=== PATIENT | female | born 1980 | race Caucasian/White ===

== ENCOUNTER 2023-07-25 05:39 | Day surgery (SDC) | payer MEDICAID, SELFPAY ==
[2023-07-25] VITALS (11 sets, daily range): BP systolic 91–126; BP diastolic 54–71; PULSE 70–87; RESP 14–18; TEMP 36.4–36.8; O2SAT 95–100; BMI 32.2
[2023-07-25 06:13] LABS: Hematocrit 39.6 % (37-47); Mean Corp Hgb Conc 32.8 g/dL (32-36); Mean Corpuscular Hgb 27.8 pg (27.0-32.0); Mean Corpuscular Volume 84.8 fL (81-99); Mean Platelet Vol. 9.1 fl (6.2-12.0); Platelet Count 327 K/mm3 (150-450); RBC Distribution Width CV 13.2 % (11.6-14.6); RBC Distribution Width SD 40.5 fl (35.1-43.9); Red Blood Count 4.67 M/mm3 (4.2-5.4)
[2023-07-25] MEDS: Lactated Ringers 1,000 ML 15 ML IV (06:18)
[2023-07-25 06:30] LABS: Anion Gap 5 (5-15); BUN 10 mg/dL (7-18); BUN/Creat Ratio 21.2 RATIO (10-20); Calcium,Total 8.5 mg/dL (8.5-10.1); Chloride 112 mmol/L (98-107); Creatinine, Serum 0.47 mg/dL (0.55-1.02); EST Glomerular Filtration Rate 152 mL/min (>60); Est Glom Filt Rate - Afr Amer 184 mL/min (>60); Estimated Creatinine Clearance 120.81 ml/min; Glucose 94 mg/dL (74-106); Potassium 4.1 mmol/L (3.5-5.1); Sodium Level 142 mmol/L (136-145)
--- NOTE | 2023-07-25 07:26 | PCM.HP.BLA ---
History and Physical Date of Admission: 07/25/23 Pt here for panniculectomy following massive weight loss with gastric bypass. Previous abdominal surgeries include hysterectomy, GB, laproscopic gastric bypass and hernial surgery. She is not a smoker, nor does she vape or use marijuana products. Neuro: Alert, cooperative, healthy appearing Pulm: lungs clear bilat. CV: RRR, no murmurs Abd: soft, no hernias; abdominal panniculus She has had a complete evaluation and clearance by her pcp. Assessment & Plan Assessment/Plan (1) Localized adiposity: (2) Panniculitis affecting back: PLAN: Plan for panniculectomy
--- NOTE | 2023-07-25 07:30 | PANN_PTH ---
PATIENT: JENNIFER MONROE LOC[place] [facility] [place][id number] AGE/SX: 43/F ROOM: RE07/25/[address]: Dr. Helen Gamboa MD : [id number] BED: DIS: 07/25/2023 SPEC #: [id number] RECD: 07/25/23 11:03 STATUS: HERBERTH BARON #: [id number] SAMANTHA: 07/25/23 07:[address]: Helen Gamboa DEPT: SURGICAL PATHOLOGY RECD BY: Alicia Rosales Tissues: Abdomen, NOS Procedures: Surgery Specimen Level IV HEADER OPERATION: Abdominal panniculectomy PRE-OP DIAGNOSIS: Localized adiposity, panniculitis affecting back TISSUE SUBMITTED: Abdominal pannus MICROSCOPIC DIAGNOSIS Abdominal pannus, panniculectomy: Pieces of skin with underlying tissue with minimal dermal chronic inflammation. ALTHEA:cain 07/29/2023 MICROSCOPIC DESCRIPTION Slides are reviewed. GROSS DESCRIPTION Received in fixative is one container labeled with the patient's name and designated abdominal pannus. The specimen consists of a piece of skin with underlying tissue measuring 20.0 x 17.0 x 4.0 cm. Two smaller pieces of skin with underlying tissue are also noted measuring 18.0 x 5.0 x 2.0 cm. No skin lesion is identified. The entire specimen was weighed in OR and weighs 1564 gm. Sections do not reveal any mass lesion. Counter Waiter sections are submitted in three cassettes. / ALTHEA:cain 07/25/2023 TC:3 CPT: 33441
[2023-07-25] MEDS: Cefazolin 2 GM in 0.9% Normal Saline 100 ML IV (07:43)
[2023-07-25] MEDS: Bupivacaine 0.25% 30 ML Vial (10:53)
--- NOTE | 2023-07-25 11:11 | DCINST_ITS ---
Discharge Instructions Diet Discharge Diet: No restrictions and - (avoid salt) Activity Additional Activity Instructions:: Follow instructions given in the office Dressing / Incision Additional Dressing/Incision Instructions:: Leave the dressing intact until seen in the office. Keep the binder pulled down to the level indicated on your thigh Follow Up Care Please Follow Up With: Helen Gamboa MD When: as directed in the office Test Results: Test results from this visit will be discussed in further detail at your follow- up appointment, if applicable. Discharge Plan Admission Attending Provider: Helen Gamboa Primary Care Provider: ROBBY PRITCHETT Discharge Orders/Prescriptions Prescriptions: No Action multivitamin Tablet 1 tab PO DAILY Hair,Skin and Nails Tablet 1 tab PO DAILY cephalexin 500 mg capsule 500 mg PO BID Qty: 14 0RF Patient Comments: PRE AND POST SURGERY Disposition Disposition (needs filled in before D/C Order can be placed): Home, Self Care
--- NOTE | 2023-07-25 11:15 | OP.PCM_ITS ---
Problems Associated Problem List Diagnoses (1) Localized adiposity: (2) Panniculitis affecting back: Report of Operation Date of Procedure: 07/25/23 Pre-Operative Diagnosis: Panniculitis lower abdomen, atrophic skin, history of massive weight loss Post-Operative Diagnosis: Same Surgery/Procedure Performed:: Panniculectomy (1564gm removal) Surgeon: Helen Gamboa turning machine operator helper: JOSS DICKERSONoracle r12 developer Type of Anesthesia: General Specimen's removed: Skin and fat of lower abdomen Drains: None Estimated Blood Loss (mL): <50cc Description of Procedure: The patient presents for panniculectomy. The procedure of been thoroughly reviewed with the patient including the expected limitations and scar tissue after surgery. The potential risk and complications of surgery have been reviewed which include but are not exclusive of bleeding, infection, pain, numbness, asymmetry, scar tissue, skin necrosis, the need for further surgery, DVT, and even . She is marked in the preop holding area prior to surgery. Patient was brought to the operating room and placed under general anesthesia in the supine position. The abdomen is prepped and draped in the usual sterile fashion. We initially began with making the incision along the premarked line. This is carried down through the subcutaneous tissue until the abdominal fascia is identified. Dissection then continued cephalad with the argon cautery undermining the extent of the redundant skin. The wound is irrigated and checked for hemostasis which is controlled with argon coagulation. The patient is then placed in a semi-Fowlers position and the skin measured and demarcated with a [place] flap marker. The redundant skin is then excised and passed off the operative field to be sent to pathology for gross identification. The wound is again inspected and meticulous hemostasis assured. The incision is then tacked together with skin clips. With a satisfactory appearance of the closure, the wound is closed in layers. A few Vicryl sutures are placed in the deep subcutaneous tissue as [id number] sutures. The incision is then closed in 3 layers using a V-Loc suture. Skin edges were approximated with a subcuticular V-Loc suture. Quarter percent plain Marcaine is injected along the incision. Xeroform is placed on the incision along with ABDs which are fixed in place with tape. The patient is then placed in abdominal binder. She was transferred to the recovery room in a semi-Fowlers position. She tolerated the procedure well. Needle and sponge counts are correct. Complications none Admit VTE Documentation VTE Mechan Device Prophylaxis: SCD's
[2023-07-25] MEDS: Ipratropium/Albuterol Sulfate 3 ML AMPUL.NEB INHALATION (11:28)
== END 2023-07-25 14:32 | disposition home or self-care (01) ==
LOC: SDC 05:46 → AC 05:46
PROVIDERS: Referring Provider Plastic Surgery; Visit Provider Plastic Surgery
PROC: 0JB80ZZ Excision of Abdomen Subcutaneous Tissue and Fascia, Open Approach (ICD-10-PCS; CPT 15830; principal; 2023-07-25 07:15)
DX: E65 Localized adiposity (principal); M79.3 Panniculitis, unspecified; L90.9 Atrophic disorder of skin, unspecified
CPT/HCPCS: 15830; 00802; Q9968; 80048; 85027; 88305; 94640; J7120; J2405